=== PATIENT | female | born 1995 | race Caucasian/White ===

== ENCOUNTER 2016-10-13 22:27 | Emergency (ER) | payer OTHER ==
[~2016-10-13] VITALS: Ht 165.1 cm; Wt 55.0 kg
[~2016-10-13 22:27] MED LIST: AMOXICILLIN875 M1 PO; BENADRYL25 MG PO; CYCLOBENZAPRINE5 M2 PO; HEARTBURN PO; IBUPROFEN800 M1 PO; PREDNISONE10 M2 PO; PRENATAL TABLE1 EAC2 PO; VALACYCLOVIR1000 MG PO
--- NOTE | 2016-10-14 00:37 | ED GENERAL ADULT ---
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 Vital Signs & Intake/Output Vital Signs & Intake/Output Vital Signs Date Time Temp Pulse Resp B/P Pulse O2 O2 Flow FiO2 Ox Delivery Rate 10/14 0254 97.0 79 18 117/70 98 Room Air 10/14 0159 97.7 78 18 106/61 98 Room Air 10/13 2253 98.3 84 16 135/74 100 Room Air ED Intake and Output 10/14 0000 10/13 1200 Intake Total Output Total Balance Patient 121 lb Weight Allergies Coded Allergies: No Known Allergies (11/19/15) Reconcile Medications Amoxicillin 875 MG TABLET 1 TAB PO BID THROAT INFECTION (Reported) Cyclobenzaprine HCl 5 MG TABLET 1 TAB PO Q8 PRN back pain may cause drowsiness Diphenhydramine HCl (Benadryl) 25 MG CAPSULE 1 CAP PO Q6P PRN RASH Ibuprofen 800 MG TABLET 800 MG PO Q6P PRN PAIN SCALE 4-6 (MODERATE) Prednisone 10 MG TABLET 1 TAB PO DAILY ALLERGIC REACTION TAKE 4 TABS FOR 3 DAYS THEN TAKE 3 TABS FOR 3 DAYS THEN TAKE 2 TABS FOR 3 DAYS THEN TAKE 1 TAB FOR 3 DAYS Vit No.130/Iron/FA ( Tablet) 1 EACH TABLET 1 TAB PO DAILY (Reported) Valacyclovir HCl (Valacyclovir) 1,000 MG TABLET 1 TAB PO TID oral sore Triage Note: PT TO ED FOR 7 MINUTES OF HEADACHE, DIZZINESS AND NAUSEA. Triage Nurses Notes Reviewed? yes Onset: Abrupt Duration: minute(s): Timing: single episode today Injury Environment: home Severity: mild Modifying Factors: Improves With: rest. Worsens With: movement. Associated Symptoms: nausea, headache : No Patient currently breastfeeds: No HPI: 21 yo woman at approximately 10pm, developed headache, nausea, dizziness "like the room is spinning," and mid epigastric discomfort. She came directly to the emergency room. She does not have diarrhea, fever, chills, cough, blurry vision. She is otherwise well. Past History Travel History Traveled to [place] past 21 day No Medical History Any Pertinent Medical History? 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 No Review of Systems Review of Systems Constitutional: Reports: no symptoms. EENTM: Reports: no symptoms. Respiratory: Reports: no symptoms. Cardiovascular: Reports: no symptoms. GI: Reports: no symptoms. Genitourinary: Reports: no symptoms. Musculoskeletal: Reports: no symptoms. Skin: Reports: no symptoms. Neurological/Psychological: Reports: no symptoms. Hematologic/Endocrine: Reports: no symptoms. Immunologic/Allergic: Reports: no symptoms. All Other Systems: Reviewed and Negative Physical Exam Physical Exam General Appearance: well developed/nourished, no apparent distress Head: atraumatic, normal appearance, tenderness along scalp musculature Eyes: Bilateral: normal appearance, PERRL, EOMI. Ears, Nose, Throat: normal pharynx, normal ENT inspection Neck: normal inspection, supple, full range of motion Respiratory: normal breath sounds, chest non-tender, no respiratory distress, quiet respiration, lungs clear Cardiovascular: regular rate/rhythm Gastrointestinal: normal bowel sounds, soft, non-tender, no organomegaly Back: normal inspection Extremities: normal inspection, normal capillary refill, normal range of motion, no edema Neurologic/Psych: no motor/sensory deficits, awake, alert, oriented x 3 Skin: intact, normal color, warm/dry Core Measures ACS in differential dx? No CVA/TIA Diagnosis: No Severe Sepsis Present: No Septic Shock Present: No Progress Differential Diagnoses I considered the following diagnoses in my evaluation of the patient: vertigo, migraine, reflux, viral syndrome vs other. Plan of Care: Orders Procedure Date/time Status URINALYSIS 10/14 38 Complete LIPASE 10/14 38 Complete HEPATIC FUNCTION PANEL 10/14 38 Complete HUMAN BETA HCG SCREEN 10/14 38 Complete CBC WITHOUT DIFFERENTIAL 10/14 38 Complete BASIC METABOLIC PANEL 10/14 38 Complete AMYLASE 10/14 38 Complete Laboratory Tests 10/14/16 0106: Urine Color YEL, Urine Clarity CLEAR, Urine pH 6.0, Ur Specific [place] >= 1.030 , Urine Protein NEG, Urine Ketones NEG, Urine Nitrite NEG, Urine Bilirubin NEG, Urine Urobilinogen 0.2, Ur Leukocyte Esterase NEG, Ur Microscopic EXAM NOT REQUIRED, Urine Hemoglobin NEG, Urine Glucose NEG 10/14/16 0054: Anion Gap 9, Estimated GFR > 60, BUN/Creatinine Ratio 23.3, Glucose 94, Calcium 9.2, Total Bilirubin 0.8, Direct Bilirubin 0.2, AST 17, ALT 28, Alkaline Phosphatase 78, Total Protein 7.3, Albumin 4.2, Amylase 60, Lipase 167, Total Beta HCG NEGATIVE, CBC w Diff NO MAN DIFF REQ, RBC 4.83, MCV 83.3, MCH 28.2, RDW 12.9, MPV 8.5, Gran % 49.7, Lymphocytes % 42.2, Monocytes % 5.6, Eosinophils % 1.9, Basophils % 0.6, Absolute Granulocytes 4.6, Absolute Lymphocytes 3.9 H, Absolute Monocytes 0.5, Absolute Eosinophils 0.2, Absolute Basophils 0.1, PUBS MCHC 33.9 Initial ED EKG: none Departure Departure Disposition: HOME OR SELF CARE Condition: Stable Clinical Impression Primary Impression: Headache Secondary Impressions: Epigastric pain, Vertigo Referrals: PATIENT HAS NO PRIMARY CARE DR (PCP/Family) Departure Forms: Customer Survey General Discharge Information Comments 10/14/16, 3:27am... pt feeling better. labs benign... safe for discharge. Critical Care Note Critical Care Note Critical Care Time: non-applicable
[2016-10-14 01:03] LABS: ABSOLUTE BASOPHIL COUNT 0.1 /CUMM (0.0-0.2); ABSOLUTE EOSINOPHIL COUNT 0.2 /CUMM (0.0-0.7); ABSOLUTE GRANULOCYTE CT 4.6 /CUMM (1.4-6.5); ABSOLUTE LYMPH COUNT 3.9 /CUMM (1.2-3.4); ABSOLUTE MONOCYTE COUNT 0.5 /CUMM (0.10-0.60); BASOPHIL % 0.6 % (0.0-2.0); EOSINOPHIL % 1.9 % (0-5); GRANULOCYTE % 49.7 % (42.2-75.2); HEMATOCRIT 40.2 % (37-47); MEAN CORPUSCULAR HGB 28.2 PG (27.0-31.0); MEAN CORPUSCULAR HGB CONC 33.9 G/DL (33.0-37.0); MEAN CORPUSCULAR VOLUME 83.3 FL (81.0-99.0); MEAN PLATELET VOLUME 8.5 FL (7.4-10.4); PLATELET COUNT 251 /CUMM (130-400); RBC DISTRIBUTION WIDTH 12.9 % (11.5-14.5); RED BLOOD CELL CT 4.83 /CUMM (4.20-5.40); WHITE BLOOD CELL COUNT 9.3 /CUMM (4.8-10.8)
[2016-10-14 02:54] VITALS: BP 117/70
== END 2016-10-14 03:08 ==
LOC: ERH 22:27
PROVIDERS: Pediatrics
DX: R42 Dizziness and giddiness (principal); R10.13 Epigastric pain; R51 Headache
CPT/HCPCS: 81003; J3101